=== PATIENT | female | born 1990 | race Hispanic/Latino ===

== ENCOUNTER 2017-03-25 13:15 | Emergency (ER) | payer MEDICAID ==
[2017-03-25 14:03] LABS: Bilirubin,Urine NEG (Negative); Blood,Urine NEG (Negative); Ketones,Urine NEG (Negative); Leukocyte Esterase,Urine NEG (Negative); Nitrite,Urine NEG (Negative); Protein,Urine <15 mg/dL mg/dL (Negative); RBC,Urine < 1.0 /HPF (0.0-6.0); Urobilinogen,Urine < 2.0 mg/dL (<2.0); WBC,Urine < 1.0 /HPF (0.0-6.0)
[2017-03-25 14:09] LABS: Basophils % (Auto) 0.9 % (0.0-1.8); Hematocrit 44.6 % (30.3-42.9); Hemoglobin 15.3 gm/dl (10.1-14.3); Mean Corpuscular HGB Conc 34 % (30-34); Mean Corpuscular Hemoglobin 32 pg (28-32); Mean Corpuscular Volume 93 fl (79-97); Platelet Count 214 K/mm3 (140-440); Red Blood Count 4.78 M/mm3 (3.65-5.03); Red Cell Distribution Width 13.4 % (13.2-15.2); White Blood Count 10.4 K/mm3 (4.5-11.0)
[2017-03-25 15:50] LABS: Alanine Aminotransferase 20 units/L (7-56); Albumin 4.4 g/dL (3.9-5); Albumin/Globulin Ratio 1.6 %; Alkaline Phosphatase 72 units/L (35-129); Anion Gap 19 mmol/L; BUN/Creatinine Ratio 11.25; Blood Urea Nitrogen 9 mg/dL (7-17); Calcium 9.5 mg/dL (8.4-10.2); Carbon Dioxide 22 mmol/L (22-30); Chloride 101.2 mmol/L (98-107); Glucose 80 mg/dL (65-100); Lipase 50 units/L (13-60); Potassium 4.3 mmol/L (3.6-5.0); Sodium 138 mmol/L (137-145); Total Protein 7.2 g/dL (6.3-8.2)
[2017-03-25] MEDS ORDERED: TORADOL IM ONE (16:37)
[2017-03-25] MEDS ORDERED: FLEXERIL PO ONE (16:37)
--- NOTE | 2017-03-25 16:44 | Emergency Department Report ---
ED Back Pain/Injury HPI - General Chief Complaint: Abdominal Pain Stated Complaint: LEFT SIDE PAIN Time Seen by Provider: 03/25/17 16:18 Source: patient Limitations: No Limitations - History of Present Illness Initial Comments: 27-year-old female with a past medical history presents to the hospital complaining of sudden onset left flank pain after walking this morning. Patient complained of a twisting pulling sensation with 7/10 in intensity. Pain was worse with movement and palpation. Patient also lifting a 20 pound child on a regular basis. Patient has been having an intermittent and more mild pain for the last 2 weeks but acutely worsened today while ambulating. One episode of vomiting yesterday. Patient denies any nausea or vomiting today with severe pain episodes. She denies dysuria, hematuria, fever or continued intermittent nausea or vomiting, leg weakness or numbness. - Related Data Previous Rx's Medication Instructions Recorded Last Taken Type Ibuprofen [Motrin] 800 mg PO Q8HR PRN #30 tablet 03/25/17 Unknown Rx Metaxalone [Skelaxin] 800 mg PO TID PRN #30 tablet 03/25/17 Unknown Rx traMADol [Ultram 50 MG tab] 50 mg PO Q6HR PRN #20 tablet 03/25/17 Unknown Rx Allergies Allergy/AdvReac Type Severity Reaction Status Date / Time No Known Allergies Allergy Unverified 03/25/17 13:25 ED Review of Systems ROS: Stated complaint: LEFT SIDE PAIN Other details as noted in HPI Comment: All other systems reviewed and negative Other: Constitutional: No fevers chills Eyes: No eye pain visual changes ENT: No ear pain or throat pain Neck: Denies pain Respiratory: Denies cough wheezing shortness of breath Cardiovascular: Denies chest pain, palpitations, syncope GI: Mild left lower quadrant pain. : Denies dysuriacy Musculoskeletal: As per HPI Skin: Denies rash, lesions, erythema Neurologic: Denies headache, numbness, weakness Psychiatric: Denies suicidal ideation, hallucinations ED Past Medical Hx - Past Medical History Previous Medical History?: No - Surgical History Hx Cholecystectomy: Yes - Social History Smoking Status: Current Every Day Smoker Substance Use Type: None - Medications Home Medications: Home Medications Medication Instructions Recorded Confirmed Last Taken Type Ibuprofen [Motrin] 800 mg PO Q8HR PRN #30 tablet 03/25/17 Unknown Rx Metaxalone [Skelaxin] 800 mg PO TID PRN #30 tablet 03/25/17 Unknown Rx traMADol [Ultram 50 MG tab] 50 mg PO Q6HR PRN #20 tablet 03/25/17 Unknown Rx ED Physical Exam - General Limitations: No Limitations - Other Other exam information: General: No limitations, patient is alert in no acute distress Head exam: Atraumatic, normocephalic Eyes exam: Normal appearance, pupils equal reactive to light, extraocular movements intact ENT: Moist mucous membrane, normal oropharynx Neck exam: Normal inspection, full range of motion, no meningismus nontender Respiratory exam: Clear to auscultation bilateral, no wheezes, rales, crackles Cardiovascular: Normal rate and rhythm, normal heart sounds Abdomen: Soft, nondistended, and nontender, with normal bowel sounds, no rebound, or guarding Extremity: Full range of motion normal inspection no deformity Back: Normal Inspection, full range of motion, reproducible tenderness to left lower back muscles and flank. No midline tenderness Neurologic: Alert, oriented x3, cranial nerves intact, no motor or sensory deficit Psychiatric: normal affect, normal mood Skin: Warm, dry, intact ED Course Vital Signs 03/25/17 03/25/17 13:25 13:47 Temperature 98.7 F 98.4 F Pulse Rate 64 63 Respiratory 16 16 Rate Blood Pressure 125/76 Blood Pressure 100/63 [Left] O2 Sat by Pulse 98 98 Oximetry - Reevaluation(s) Reevaluation #1: 03/25/17 16:50 Toradol and Flexeril ordered ED Medical Decision Making - Lab Data Result diagrams: 03/25/17 13:54 03/25/17 13:54 Lab Results 03/25/17 03/25/17 03/25/17 Range/Units 13:37 13:54 13:54 WBC 10.4 (4.5-11.0) K/mm3 RBC 4.78 (3.65-5.03) M/mm3 Hgb 15.3 H (10.1-14.3) gm/dl Hct 44.6 H (30.3-42.9) % MCV 93 (79-97) fl MCH 32 (28-32) pg MCHC 34 (30-34) % RDW 13.4 (13.2-15.2) % Plt Count 214 (140-440) K/mm3 Lymph % (Auto) 27.6 (13.4-35.0) % [place] % (Auto) 8.2 H (0.0-7.3) % Eos % (Auto) 0.0 (0.0-4.3) % Baso % (Auto) 0.9 (0.0-1.8) % Lymph # 2.9 (1.2-5.4) K/mm3 [place] # 0.9 H (0.0-0.8) K/mm3 Eos # 0.0 (0.0-0.4) K/mm3 Baso # 0.1 (0.0-0.1) K/mm3 Seg Neutrophils % 63.3 (40.0-70.0) % Seg Neutrophils # 6.5 (1.8-7.7) K/mm3 Sodium 138 (137-145) mmol/L Potassium 4.3 (3.6-5.0) mmol/L Chloride 101.2 (98-107) mmol/L Carbon Dioxide 22 (22-30) mmol/L Anion Gap 19 mmol/L BUN 9 (7-17) mg/dL Creatinine 0.8 (0.7-1.2) mg/dL Estimated GFR > 60 ml/min BUN/Creatinine Ratio 11.25 % Glucose 80 (65-100) mg/dL Calcium 9.5 (8.4-10.2) mg/dL Total Bilirubin 0.60 (0.1-1.2) mg/dL AST 17 (5-40) units/L ALT 20 (7-56) units/L Alkaline Phosphatase 72 (35-129) units/L Total Protein 7.2 (6.3-8.2) g/dL Albumin 4.4 (3.9-5) g/dL Albumin/Globulin Ratio 1.6 % Lipase 50 (13-60) units/L Urine Color Straw (Yellow) Urine Turbidity Clear (Clear) Urine pH 6.0 (5.0-7.0) Ur Specific [place] 1.005 (1.003-1.030) Urine Protein <15 mg/dl (Negative) mg/dL Urine Glucose (UA) Neg (Negative) mg/dL Urine Ketones Neg (Negative) mg/dL Urine Blood Neg (Negative) Urine Nitrite Neg (Negative) Ur Reducing Substances Not Reportable Urine Bilirubin Neg (Negative) Urine Ictotest Not Reportable Urine Urobilinogen < 2.0 (<2.0) mg/dL Ur Leukocyte Esterase Neg (Negative) Urine WBC (Auto) < 1.0 (0.0-6.0) /HPF Urine RBC (Auto) < 1.0 (0.0-6.0) /HPF U Epithel Cells (Auto) 1.0 (0-13.0) /HPF Urine HCG, Qual Negative (Negative) - Medical Decision Making She will be discharged home on medication for pain and muscle spasm. I have a low suspicion for kidney stone at this time given the lack of associated nausea vomiting with spasm episodes and lack of blood in urine. His symptoms worsen patient encouraged to return for further evaluation. Advised to decrease heavy lifting. - Differential Diagnosis renal colic, muscle spasm, ectopic , ovarian cyst Critical Care Time: No Critical care attestation.: If time is entered above; I have spent that time in minutes in the direct care of this critically ill patient, excluding procedure time. ED Disposition Clinical Impression: Back muscle spasm Disposition: TO HOME OR SELFCARE Is pt being admited?: No Does the pt Need Aspirin: No Condition: Stable Instructions: Muscle Spasm (ED) Additional Instructions: Take the medication as needed for pain and muscle spasm. Follow-up with your primary care doctor or one of the clinics/docs provided. Return if symptoms worsen. Prescriptions: Ibuprofen [Motrin] 800 mg PO Q8HR PRN #30 tablet PRN Reason: Pain Metaxalone [Skelaxin] 800 mg PO TID PRN #30 tablet PRN Reason: Muscle Spasm traMADol [Ultram 50 MG tab] 50 mg PO Q6HR PRN #20 tablet PRN Reason: Pain Referrals: LUIS ANTONIO LOCO MD [Primary Care Provider] - 3-5 Days QUINTIN FINLEY JR, MD [Staff Physician] - 3-5 Days [facility] [Provider Group] - 3-5 Days Time of Disposition: 16:54
[2017-03-25 17:24] VITALS: BP 96/46
== END 2017-03-25 17:23 | disposition home or self-care (01) ==
LOC: ED 13:15
DX: M62.830 Muscle spasm of back (principal); F17.200 Nicotine dependence, unspecified, uncomplicated
CPT/HCPCS: 36415; 80053; 81001; 81025; 83690; 85025; 96372; 99283; J1885

== ENCOUNTER 2018-02-10 18:59 | Outpatient (CLI) | payer MEDICAID ==
[2018-02-10 19:17] VITALS: BP 114/72
[2018-02-10] MEDS ORDERED: LACTATED RINGERS 1,000 ML IV ONE (20:09)
== END 2018-02-10 19:55 | disposition home or self-care (01) ==
LOC: TRG 18:59
PROVIDERS: ATTEND Obstetrics & Gynecology
DX: O47.03 False labor before 37 completed weeks of gestation, third trimester (principal); O99.333 Smoking (tobacco) complicating pregnancy, third trimester; Z3A.36 36 weeks gestation of pregnancy
CPT/HCPCS: 59025

== ENCOUNTER 2018-02-17 12:18 | Outpatient (CLI) | payer MEDICAID ==
[2018-02-17 11:32] VITALS: BP 105/59
[~2018-02-17 12:18] MED LIST: VISTARIL PO ONE
[2018-02-17 12:57] LABS: Bacteria,Urine 1+ /HPF (Negative); Bilirubin,Urine NEG (Negative); Blood,Urine NEG (Negative); Color,Urine Amber (Yellow); Mucus,Urine 2+ /HPF
== END 2018-02-17 13:05 | disposition home or self-care (01) ==
LOC: TRG 12:18
PROVIDERS: ATTEND Obstetrics & Gynecology
DX: O47.03 False labor before 37 completed weeks of gestation, third trimester (principal); O99.333 Smoking (tobacco) complicating pregnancy, third trimester; Z3A.37 37 weeks gestation of pregnancy
CPT/HCPCS: 59025; 81001; Q0177

== ENCOUNTER 2018-03-05 15:02 | Inpatient (IN) | payer MEDICAID ==
[2018-03-05] MEDS ORDERED: LACTATED RINGERS 1,000 ML IV ONE (16:36)
[2018-03-05] MEDS ORDERED: STADOL IV PRN (16:39)
[2018-03-05] MEDS: LACTATED RINGERS 1,000 ML IV SCH ×2 (16:55→21:33)
[2018-03-05] MEDS: PITOCin/NS 30 UNIT/500ML 30 UNITS/500 ML BAG IV SCH ×3 (16:56→21:05)
[2018-03-05 17:00] LABS: Basophils % (Auto) 0.4 % (0.0-1.8); Hematocrit 33.5 % (30.3-42.9); Lymphocytes # (Auto) 3.2 K/mm3 (1.2-5.4); Mean Corpuscular HGB Conc 36 % (30-34); Mean Corpuscular Hemoglobin 34 pg (28-32); Mean Corpuscular Volume 94 fl (79-97); Monocytes # (Auto) 1.1 K/mm3 (0.0-0.8); Monocytes % (Auto) 8.7 % (0.0-7.3); Platelet Count 251 K/mm3 (140-440); Red Blood Count 3.58 M/mm3 (3.65-5.03); Red Cell Distribution Width 12.8 % (13.2-15.2)
[2018-03-05 17:05] LABS: Bacteria,Urine 1+ /HPF (Negative); Bilirubin,Urine NEG (Negative); Blood,Urine NEG (Negative); Color,Urine Amber (Yellow); Mucus,Urine 1+ /HPF; Protein,Urine <15 mg/dL mg/dL (Negative)
[2018-03-05] MEDS ORDERED: BRETHINE SUB-Q PRN (19:01)
[2018-03-05] MEDS ORDERED: XYLOCAINE 2% INFILTRATI ONE (19:01)
[2018-03-05] MEDS ORDERED: NARCAN 0.4 MG/1 ML IV PRN (19:01)
[2018-03-05] MEDS ORDERED: ePHEDrine SULFATE IV PRN (19:01)
[2018-03-05] MEDS ORDERED: ZOFRAN IV PRN (19:01)
[2018-03-05] MEDS ORDERED: BRETHINE IVP PRN (19:01)
[2018-03-05] MEDS ORDERED: MINERAL OIL PO PRN (19:01)
[2018-03-05] MEDS ORDERED: PHENERGAN PR PRN (19:01)
[2018-03-05] MEDS ORDERED: SUBLIMAZE IV PRN (19:01)
[2018-03-05] MEDS ORDERED: LACTATED RINGERS 1,000 ML IV SCH (20:00)
[2018-03-05] MEDS ORDERED: PITOCin/NS 30 UNIT/500ML 30 UNITS/500 ML BAG IV SCH ×2 (20:00)
[2018-03-05] MEDS ORDERED: PITOCin/NS 20 UNIT/1000ML DRIP 20 UNITS/1,000 ML BAG IV SCH (20:00)
--- NOTE | 2018-03-05 22:20 | History and Physical Report ---
History of Present Illness Date of examination: 03/05/18 Date of admission: 03/05/18 15:02 Chief complaint: arrythmia on NST History of present illness: This is a 27 yo at 40 weeks admitted to labor for arrythmia detected on nst. Patient is Premier since 10 weeks with a close proximity .. She had renal pyelectasisi followed by MFM. Patient is smoker and GBS neg Past History Past Medical History: no pertinent history Past Surgical History: no surgical history Family/Genetic History: diabetes, hypertension, other (seizure and hypercholesterlemia, athritis ) Social history: , smoking. denies: alcohol abuse, prescription drug abuse - Obstetrical History Expected Date of Delivery: 03/05/18 Actual Gestation: 40 Week(s) 0 Day(s) : 2 Para: 1 Hx # Term Pregnancies: 1 Number of Pregnancies: 0 Spontaneous Abortions: 0 Induced : 0 Number of Living Children: 1 Medications and Allergies Allergies Allergy/AdvReac Type Severity Reaction Status Date / Time No Known Allergies Allergy Unverified 03/25/17 13:25 Home Medications Medication Instructions Recorded Confirmed Last Taken Type Pnv No.95/Ferrous Fum/Folic AC 1 tab PO QDAY 02/10/18 02/17/18 Unknown History [ Vitamins Tablet] Acetaminophen [Tylenol Extra 1,000 mg PO Q8HR PRN 02/17/18 02/17/18 02/09/18 15: 00 History Strength] 1 Active Meds: Active Medications Butorphanol Tartrate (Stadol) 2 mg IV Q2H PRN PRN Reason: Labor Pain Ephedrine Sulfate (Ephedrine Sulfate) 10 mg IV Q2M PRN PRN Reason: Hypotension Fentanyl (Sublimaze) 100 mcg IV Q2H PRN PRN Reason: Labor Pain Lactated Ringer's (Lactated Ringers) 1,000 mls @ 125 mls/hr IV DIRECT MICHELLE Last Admin: 03/05/18 21:33 Dose: 125 mls/hr Oxytocin/Sodium Chloride (Pitocin/Ns 30 Unit/500ml) 30 units in 500 mls @ 2 mls /hr IV TITR MICHELLE; Protocol Last Titration: 03/05/18 21:33 Dose: 12 milliunits/min, 12 mls/hr Lactated Ringer's (Lactated Ringers) 1,000 mls @ 125 mls/hr IV DIRECT MICHELLE Oxytocin/Sodium Chloride (Pitocin/Ns 20 Unit/1000ml Drip) 20 units in 1,000 mls @ 125 mls/hr IV DIRECT MICHELLE Oxytocin/Sodium Chloride (Pitocin/Ns 30 Unit/500ml) 30 units in 500 mls @ 1 mls /hr IV TITR MICHELLE; Protocol Oxytocin/Sodium Chloride (Pitocin/Ns 30 Unit/500ml) 30 units in 500 mls @ 0 mls /hr IV TITR MICHELLE; Protocol Mineral Oil (Mineral Oil) 30 ml PO QHS PRN PRN Reason: Constipation Naloxone HCl (Narcan 0.4 Mg/1 Ml) 0.1 mg IV Q2MIN PRN PRN Reason: Res Rate </= 8 or 02 SAT < 92% Ondansetron HCl (Zofran) 4 mg IV Q8H PRN PRN Reason: Nausea And Vomiting Promethazine HCl (Phenergan) 25 mg TN Q6H PRN PRN Reason: N/V if unable to take po Terbutaline Sulfate (Brethine) 0.25 mg SUB-Q ONCE PRN PRN Reason: Hyperstimulation/Hypertonicity Terbutaline Sulfate (Brethine) 0.25 mg IVP ONCE PRN PRN Reason: Hyperstimulation/Hypertonicity Review of Systems All systems: negative - Vital Signs Vital signs: Vital Signs Pulse BP 95 H 108/67 03/05/18 15:38 03/05/18 15:38 Temp Pulse Resp BP Pulse Ox 98.1 F 69 16 111/71 98 03/05/18 19:18 03/05/18 22:19 03/05/18 19:18 03/05/18 22:00 03/05/18 22:19 - Physical Exam Breasts: Positive: normal Cardiovascular: Regular rate, Normal S1 Lungs: Positive: Clear to auscultation, Normal air movement Abdomen: Positive: normal appearance, soft, normal bowel sounds. Negative: distention, tenderness, guarding Genitourinary (Female): Positive: normal external genitalia, normal perenium Vagina: Positive: normal moisture Uterus: Positive: normal size Anus/Rectum: Positive: normal perianal skin Extremities: Positive: normal Deep Tendon Reflex Grade: Normal +2 - Obstetrical FHR: category 1 Cervical Dilatation: 4 Cervical Effacement Percentage: 80 station: -2 Uterine Contraction Pattern: Irregular Uterine Tone Measurement Phase: Resting Uterine Contraction Intensity: Mild Results Result Diagrams: 03/05/18 15:40 Abnormal lab results 03/05/18 03/05/18 Range/Units 15:40 16:40 WBC 12.7 H (4.5-11.0) K/mm3 RBC 3.58 L (3.65-5.03) M/mm3 MCH 34 H (28-32) pg MCHC 36 H (30-34) % RDW 12.8 L (13.2-15.2) % [place] % (Auto) 8.7 H (0.0-7.3) % [place] # 1.1 H (0.0-0.8) K/mm3 Seg Neutrophils # 8.4 H (1.8-7.7) K/mm3 Urine WBC (Auto) 7.0 H (0.0-6.0) /HPF All other labs normal. Assessment and Plan A/P IUP 40 weeks, term arrythmia obesity smoker IOL with pitocin close and maternal surveillance offer epidural expect vaginal delivery peds to be contacted to be in attendance to delivery
--- NOTE | 2018-03-06 07:44 | Progress Note ---
Assessment and Plan A: IUP at term Active Labor P; AROM-clear fluid Active mangt Pitocin Subjective - Subjective Date of service: 03/06/18 Patient reports: new complaints, movement normal, contractions (Denies pain with ctx), no loss of fluid, no vaginal bleeding Objective - Vital Signs Vital Signs: Vital Signs - 12hr 03/05/18 03/05/18 03/05/18 19:39 19:44 19:49 Pulse Rate 53 L 56 L 56 L Blood Pressure O2 Sat by Pulse 99 98 99 Oximetry 03/05/18 03/05/18 03/05/18 19:54 19:59 20:01 Pulse Rate 52 L 62 Blood Pressure O2 Sat by Pulse 99 99 85 Oximetry 03/05/18 03/05/18 03/05/18 20:04 20:09 20:14 Pulse Rate 55 L 53 L 57 L Blood Pressure O2 Sat by Pulse 98 99 99 Oximetry 03/05/18 03/05/18 03/05/18 20:19 20:24 20:28 Pulse Rate 53 L 55 L 64 Blood Pressure O2 Sat by Pulse 99 98 87 Oximetry 03/05/18 03/05/18 03/05/18 20:29 20:34 20:39 Pulse Rate 79 57 L 58 L Blood Pressure O2 Sat by Pulse 85 99 98 Oximetry 03/05/18 03/05/18 03/05/18 20:44 20:49 20:54 Pulse Rate 50 L 55 L 51 L Blood Pressure O2 Sat by Pulse 96 99 98 Oximetry 03/05/18 03/05/18 03/05/18 20:59 21:04 21:09 Pulse Rate 68 56 L 56 L Blood Pressure O2 Sat by Pulse 99 98 98 Oximetry 03/05/18 03/05/18 03/05/18 21:14 21:19 21:24 Pulse Rate 54 L 56 L 54 L Blood Pressure O2 Sat by Pulse 98 96 98 Oximetry 03/05/18 03/05/18 03/05/18 21:29 21:34 21:39 Pulse Rate 55 L 53 L 55 L Blood Pressure 119/68 O2 Sat by Pulse 96 97 97 Oximetry 03/05/18 03/05/18 03/05/18 21:44 21:49 21:54 Pulse Rate 52 L 71 51 L Blood Pressure O2 Sat by Pulse 98 97 97 Oximetry 0703/05/18 03/05/18 21:59 22:00 22:04 Pulse Rate 58 L 53 L 58 L Blood Pressure 111/71 O2 Sat by Pulse 97 99 Oximetry 03/05/18 03/05/18 03/05/18 22:09 22:14 22:19 Pulse Rate 54 L 50 L 69 Blood Pressure O2 Sat by Pulse 98 99 98 Oximetry 03/05/18 03/05/18 03/05/18 22:24 22:29 22:30 Pulse Rate 51 L 51 L 50 L Blood Pressure 123/69 O2 Sat by Pulse 98 97 Oximetry 03/05/18 03/05/18 03/05/18 22:34 22:39 22:44 Pulse Rate 56 L 62 59 L Blood Pressure O2 Sat by Pulse 94 98 90 Oximetry 03/05/18 03/05/18 03/05/18 22:49 22:54 22:59 Pulse Rate 57 L 56 L 55 L Blood Pressure O2 Sat by Pulse 100 99 99 Oximetry 03/05/18 03/05/18 03/05/18 23:04 23:09 23:14 Pulse Rate 51 L 51 L 50 L Blood Pressure O2 Sat by Pulse 98 98 99 Oximetry 03/05/18 03/05/18 03/05/18 23:19 23:24 23:29 Pulse Rate 53 L 53 L 69 Blood Pressure O2 Sat by Pulse 98 98 98 Oximetry 03/05/18 03/05/18 03/05/18 23:30 23:34 23:39 Pulse Rate 57 L 57 L 67 Blood Pressure 119/71 O2 Sat by Pulse 98 98 Oximetry 03/05/18 03/05/18 03/05/18 23:44 23:49 23:54 Pulse Rate 54 L 55 L 67 Blood Pressure O2 Sat by Pulse 98 98 96 Oximetry 03/05/18 03/05/18 03/06/18 23:56 23:59 00:02 Pulse Rate 72 57 L 53 L Blood Pressure 137/84 O2 Sat by Pulse 93 99 Oximetry 03/06/18 03/06/18 03/06/18 00:04 00:09 00:14 Pulse Rate 66 52 L 58 L Blood Pressure O2 Sat by Pulse 99 99 99 Oximetry 03/06/18 03/06/18 03/06/18 00:19 00:24 00:29 Pulse Rate 55 L 50 L 55 L Blood Pressure O2 Sat by Pulse 98 98 96 Oximetry 03/06/18 03/06/18 03/06/18 00:30 00:34 00:39 Pulse Rate 58 L 50 L 58 L Blood Pressure 111/70 O2 Sat by Pulse 98 98 Oximetry 03/06/18 03/06/18 03/06/18 00:45 00:50 00:55 Pulse Rate 78 71 54 L Blood Pressure O2 Sat by Pulse 99 96 98 Oximetry 03/06/18 03/06/18 03/06/18 01:00 01:05 01:06 Pulse Rate 55 L 56 L 51 L Blood Pressure 114/66 119/58 O2 Sat by Pulse 99 99 Oximetry 03/06/18 03/06/18 03/06/18 01:10 01:15 01:20 Pulse Rate 52 L 62 55 L Blood Pressure O2 Sat by Pulse 98 98 97 Oximetry 03/06/18 03/06/18 03/06/18 01:25 01:29 01:30 Pulse Rate 50 L 54 L 51 L Blood Pressure 104/68 O2 Sat by Pulse 98 98 Oximetry 03/06/18 03/06/18 03/06/18 01:35 01:40 01:45 Pulse Rate 57 L 54 L 56 L Blood Pressure O2 Sat by Pulse 97 96 96 Oximetry 03/06/18 03/06/18 03/06/18 01:50 01:55 01:56 Pulse Rate 52 L 54 L 55 L Blood Pressure O2 Sat by Pulse 94 95 94 Oximetry 03/06/18 03/06/18 03/06/18 01:59 02:00 02:01 Pulse Rate 54 L 54 L 54 L Blood Pressure 110/67 O2 Sat by Pulse 95 94 Oximetry 03/06/18 03/06/18 03/06/18 02:05 02:06 02:10 Pulse Rate 54 L 51 L 49 L Blood Pressure O2 Sat by Pulse 94 94 94 Oximetry 03/06/18 03/06/18 03/06/18 02:15 02:17 02:20 Pulse Rate 49 L 53 L 51 L Blood Pressure O2 Sat by Pulse 94 94 95 Oximetry 03/06/18 03/06/18 03/06/18 02:25 02:30 02:35 Pulse Rate 47 L 50 L 47 L Blood Pressure 114/69 O2 Sat by Pulse 100 100 100 Oximetry 03/06/18 03/06/18 03/06/18 02:40 02:45 02:50 Pulse Rate 52 L 48 L 50 L Blood Pressure O2 Sat by Pulse 100 100 100 Oximetry 03/06/18 03/06/18 03/06/18 02:55 02:59 03:00 Pulse Rate 47 L 48 L 52 L Blood Pressure 114/68 O2 Sat by Pulse 100 100 Oximetry 03/06/18 03/06/18 03/06/18 03:05 03:10 03:15 Pulse Rate 64 63 61 Blood Pressure O2 Sat by Pulse 99 100 100 Oximetry 03/06/18 03/06/18 03/06/18 03:16 03:20 03:25 Pulse Rate 58 L 49 L 50 L Blood Pressure O2 Sat by Pulse 89 100 100 Oximetry 03/06/18 03/06/18 03/06/18 03:30 03:35 03:40 Pulse Rate 47 L 54 L 62 Blood Pressure 106/66 O2 Sat by Pulse 100 99 99 Oximetry 03/06/18 03/06/18 03/06/18 03:45 03:50 03:55 Pulse Rate 51 L 50 L 53 L Blood Pressure O2 Sat by Pulse 99 99 99 Oximetry 03/06/18 03/06/18 03/06/18 04:00 04:05 04:10 Pulse Rate 50 L 49 L 49 L Blood Pressure 118/56 O2 Sat by Pulse 98 98 98 Oximetry 03/06/18 03/06/18 03/06/18 04:15 04:20 04:25 Pulse Rate 49 L 45 L 48 L Blood Pressure O2 Sat by Pulse 98 98 98 Oximetry 03/06/18 03/06/18 03/06/18 04:29 04:30 04:35 Pulse Rate 44 L 61 49 L Blood Pressure 106/55 O2 Sat by Pulse 98 98 Oximetry 03/06/18 03/06/18 03/06/18 04:40 04:45 04:50 Pulse Rate 47 L 50 L 48 L Blood Pressure O2 Sat by Pulse 98 98 98 Oximetry 03/06/18 03/06/18 03/06/18 04:56 05:01 05:06 Pulse Rate 51 L 47 L 50 L Blood Pressure 122/67 O2 Sat by Pulse 97 96 95 Oximetry 03/06/18 03/06/18 03/06/18 05:11 05:16 05:21 Pulse Rate 46 L 47 L 49 L Blood Pressure O2 Sat by Pulse 93 94 92 Oximetry 03/06/18 03/06/18 03/06/18 05:26 05:30 05:31 Pulse Rate 49 L 54 L 47 L Blood Pressure 90/51 O2 Sat by Pulse 92 92 Oximetry 03/06/18 03/06/18 03/06/18 05:36 05:41 05:46 Pulse Rate 47 L 48 L 45 L Blood Pressure O2 Sat by Pulse 92 93 92 Oximetry 03/06/18 03/06/18 03/06/18 05:51 05:56 06:00 Pulse Rate 48 L 47 L 50 L Blood Pressure 122/69 O2 Sat by Pulse 92 92 Oximetry 03/06/18 03/06/18 03/06/18 06:01 06:06 06:11 Pulse Rate 50 L 49 L 47 L Blood Pressure O2 Sat by Pulse 92 93 96 Oximetry 03/06/18 03/06/18 03/06/18 06:16 06:21 06:26 Pulse Rate 51 L 59 L 50 L Blood Pressure O2 Sat by Pulse 95 96 97 Oximetry 03/06/18 03/06/18 03/06/18 06:29 06:31 06:36 Pulse Rate 68 43 L 49 L Blood Pressure O2 Sat by Pulse 92 97 96 Oximetry 03/06/18 03/06/18 03/06/18 06:41 06:46 06:51 Pulse Rate 47 L 50 L 47 L Blood Pressure O2 Sat by Pulse 96 95 97 Oximetry 03/06/18 03/06/18 03/06/18 06:56 07:01 07:06 Pulse Rate 49 L 44 L 47 L Blood Pressure O2 Sat by Pulse 98 99 98 Oximetry 03/06/18 03/06/18 03/06/18 07:11 07:16 07:21 Pulse Rate 48 L 45 L 53 L Blood Pressure O2 Sat by Pulse 98 97 98 Oximetry 03/06/18 03/06/18 03/06/18 07:31 07:35 07:36 Pulse Rate 59 L 51 L 48 L Blood Pressure 145/65 O2 Sat by Pulse 99 99 Oximetry - Exam Breasts: deferred Abdomen: Present: normal appearance FHR: category 1 Uterine Contraction Monitor Mode: External Cervical Dilatation: 5 Cervical Effacement Percentage: 80 station: -2 Uterine Contraction Frequency (min): 2 Uterine Contraction Duration: 60-80 Uterine Contraction Pattern: Regular Uterine Tone Measurement Phase: Resting Uterine Contraction Intensity: Moderate - Labs Labs: Abnormal Labs 03/05/18 03/05/18 15:40 16:40 WBC 12.7 H RBC 3.58 L MCH 34 H MCHC 36 H RDW 12.8 L [place] % (Auto) 8.7 H [place] # 1.1 H Seg Neutrophils # 8.4 H Urine WBC (Auto) 7.0 H Laboratory Results - last 24 hr 03/05/18 03/05/18 03/05/18 15:40 15:40 16:40 WBC 12.7 H RBC 3.58 L Hgb 12.0 Hct 33.5 MCV 94 MCH 34 H MCHC 36 H RDW 12.8 L Plt Count 251 Lymph % (Auto) 25.0 [place] % (Auto) 8.7 H Eos % (Auto) 0.0 Baso % (Auto) 0.4 Lymph # 3.2 [place] # 1.1 H Eos # 0.0 Baso # 0.0 Seg Neutrophils % 65.9 Seg Neutrophils # 8.4 H Urine Color Rachelle Urine Turbidity Cloudy Urine pH 6.0 Ur Specific [place] 1.017 Urine Protein <15 mg/dl Urine Glucose (UA) Neg Urine Ketones Neg Urine Blood Neg Urine Nitrite Neg Urine Bilirubin Neg Urine Urobilinogen 4.0 Ur Leukocyte Esterase Neg Urine WBC (Auto) 7.0 H Urine RBC (Auto) 4.0 U Epithel Cells (Auto) 2.0 Urine Bacteria (Auto) 1+ Urine Mucus 1+ Urine Yeast (Budding) 2+ Blood Type A POSITIVE Antibody Screen Negative
--- NOTE | 2018-03-06 08:51 | Event Note ---
Date: 03/06/18 Called by RN secondary to inability to monitor contractions. FHTs Cat II. SVE: /-2. IUPC placed. Decrease pitocin by half, then increase per protocol. Routine intrapartum care.
[2018-03-06] MEDS ORDERED: NARCAN 2 MG/2 ML IV PRN (09:25)
[2018-03-06] MEDS ORDERED: ePHEDrine SULFATE IV PRN (09:25)
--- NOTE | 2018-03-06 09:25 | Anesthesia Consultation ---
Anesthesia Consult and Med Hx Date of service: 03/06/18 - Airway Anesthetic Teeth Evaluation: Good ROM Head & Neck: Adequate Mental/Hyoid Distance: Adequate Mallampati Class: Class II Intubation Access Assessment: Probably Good - Pre-Operative Health Status ASA Pre-Surgery Classification: ASA2 Proposed Anesthetic Plan: Epidural, Spinal - Pulmonary Hx Smoking: Yes (current smoker) Hx Asthma: Yes COPD: No Hx Pneumonia: Yes (hx) - Cardiovascular System Hx Hypertension: No - Central Nervous System Hx Seizures: No Hx Psychiatric Problems: No - Endocrine Hx Renal Disease: No Hx End Stage Renal Disease: No Hx Hypothyroidism: No Hx Hyperthyroidism: No - Hematic Hx Anemia: No Hx Sickle Cell Disease: No - Other Systems Hx Alcohol Use: No
[2018-03-06] MEDS ORDERED: fentaNYL-BUPIV 2 MCG/ML-0.125% 200 MCG/100 ML BAG EPIDURAL SCH (10:00)
--- NOTE | 2018-03-06 11:31 | Procedure Note ---
OB Delivery Note - Delivery Date of Delivery: 03/06/18 (8-0lb male @ 1058) Surgeon: NOEMY DANG Estimated blood loss: 100cc - Vaginal Delivery presentation: vertex Delivery position: OA Intrapartum events: mult.variable deceleratio Delivery induction: oxytocin Delivery augmentation: rupture of membranes, pitocin Delivery monitor: external FHT, external uterine, internal uterine Route of delivery: Delivery placenta: spontaneous Delivery cord: nuchal cord (Tight x 1, reduced), 3 umbilical vessels Episiotomy: none Delivery laceration: none Anesthesia: epidural - Infant A at 1 minute: 7 at 5 minutes: 9 Infant Gender: Male (Pushed to viable male over intact, tight NC reduced. NICU at BS. Spont. placenta, cord blood collected. to warmer, suctioned. No lacerations. FF 3 below, U, ML.)
[2018-03-06] MEDS ORDERED: NORCO 5/325 PO PRN (11:36)
[2018-03-06] MEDS ORDERED: MILK OF MAGNESIA PO PRN (11:36)
[2018-03-06] MEDS ORDERED: PHENERGAN PR PRN (11:36)
[2018-03-06] MEDS ORDERED: PHENERGAN PO PRN (11:36)
[2018-03-06] MEDS ORDERED: ZOFRAN IV PRN (11:36)
[2018-03-06] MEDS ORDERED: LANSINOH TP PRN (11:36)
[2018-03-06] MEDS ORDERED: BENADRYL PO PRN (11:36)
[2018-03-06] MEDS ORDERED: TUCKS PAD TP PRN (11:36)
[2018-03-06] MEDS ORDERED: TYLENOL PO PRN (11:36)
[2018-03-06] MEDS ORDERED: DULCOLAX PR PRN (11:36)
[2018-03-06] MEDS ORDERED: SODIUM CHLORIDE FLUSH SYRINGE 10 ML IV NR (12:00)
[2018-03-06] MEDS: MOTRIN PO SCH (17:46)
[2018-03-06 23:57] LABS: Hematocrit 29.2 % (30.3-42.9); Hemoglobin 10.3 gm/dl (10.1-14.3)
[2018-03-07] MEDS: MOTRIN PO SCH ×4 (00:15→12:18)
--- NOTE | 2018-03-07 08:53 | Progress Note ---
Assessment and Plan O: VSS AF PP H/H: 10.3/29.2 A: Stable PP Day 1 P: D/c home Subjective - Subjective Date of service: 03/07/18 Patient reports: appetite normal, voiding normally, pain well controlled, flatus , ambulating normally : doing well, bottle feeding Objective - Vital Signs Latest vital signs: Vital Signs Temp Pulse Resp BP BP Pulse Ox 03/07/18 07:40 97.5 F L 47 L 18 112/63 94 03/07/18 00:16 98.3 F 64 18 104/58 109/62 98 03/06/18 20:40 98.2 F 62 18 110/67 97 03/06/18 16:30 98.2 F 58 L 18 108/58 03/06/18 13:00 98.2 F 51 L 18 111/59 03/06/18 12:16 59 L 105/55 03/06/18 12:01 48 L 113/60 03/06/18 11:46 55 L 118/59 03/06/18 11:31 57 L 119/58 03/06/18 11:16 48 L 113/56 03/06/18 11:07 54 L 120/55 03/06/18 10:47 50 L 133/65 03/06/18 10:31 56 L 127/58 03/06/18 09:59 55 L 115/54 03/06/18 09:49 57 L 130/58 03/06/18 09:48 53 L 142/65 03/06/18 09:44 60 94 03/06/18 09:43 56 L 99 03/06/18 09:39 58 L 173/79 03/06/18 09:38 59 L 97 03/06/18 09:00 82 149/98 03/06/18 08:59 98.0 F Intake and Output 03/06/18 03/07/18 03/07/18 22:59 06:59 14:59 Intake Total 600 480 Output Total 1800 Balance -1200 480 Intake: Oral 600 480 Output: Urine 1800 Void 1800 Other: Total, Intake Amount 240 240 Total, Output Amount 500 # Voids Void 1 - Exam Breasts: Present: deferred Abdomen: Present: normal appearance, soft. Absent: distention, tenderness Uterus: Present: normal, firm, fundal height below umbilicus. Absent: bogginess , tenderness Extremities: Present: normal - Labs Labs: Abnormal lab results 03/06/18 Range/Units 23:34 Hct 29.2 L (30.3-42.9) %
--- NOTE | 2018-03-07 08:56 | Discharge Summary ---
Providers - Providers Date of Admission: 03/05/18 15:02 Date of discharge: 03/07/18 Attending physician: FARIHA OROPEZA MD Primary care physician: FARIHA OROPEZA MD Hospitalization Reason for admission: induction of labor, IUP at term Delivery: Episiotomy: none Laceration: none Other procedures: none complications: none Discharge diagnosis: IUP at term delivered baby: female Condition at discharge: Good Disposition: DC-01 TO HOME OR SELFCARE Plan - Discharge Medications Prescriptions: Ibuprofen [Motrin 600 MG tab] 600 mg PO Q6H PRN #30 tablet PRN Reason: pain - Provider Discharge Summary Activity: routine, no sex for 6 weeks, no heavy lifting 4 weeks, no strenuous exercise Diet: routine Instructions: routine Additional instructions: [] Smoking cessation referral if applicable(refer to patient education folder for contact #) [] Refer to [facility] Booklet Call your doctor immediately for: * Fever > 100.5 * Heavy vaginal bleeding ( >1 pad per hour) * Severe persistent headache * Shortness of breath * Reddened, hot, painful area to leg or breast * Drainage or odor from incision. * Keep incision clean and dry at all times and follow doctor's instructions regarding bathing/showering - Follow up plan Follow up: FARIHA OROPEZA MD [Primary Care Provider] - (RTO 4 weeks )
[2018-03-07] MEDS ORDERED: PRENATAL VITAMIN PO SCH (10:00)
[2018-03-07 12:03] VITALS: BP 114/66
== END 2018-03-07 15:20 | disposition home or self-care (01) | DRG 775 ==
LOC: LD 15:02 → OB 03-06 13:00
PROVIDERS: ADMIT Obstetrics & Gynecology; ATTEND Obstetrics & Gynecology
PROC: 10E0XZZ Delivery of Products of Conception, External Approach (ICD-10-PCS; principal; 2018-03-06)
PROC: 3E0R3BZ Introduction of Anesthetic Agent into Spinal Canal, Percutaneous Approach (ICD-10-PCS; 2018-03-06)
PROC: 00HU33Z Insertion of Infusion Device into Spinal Canal, Percutaneous Approach (ICD-10-PCS; 2018-03-06)
PROC: 3E033VJ Introduction of Other Hormone into Peripheral Vein, Percutaneous Approach (ICD-10-PCS; 2018-03-06)
DX: O99.334 Smoking (tobacco) complicating childbirth (principal); Z37.0 Single live birth; F17.200 Nicotine dependence, unspecified, uncomplicated; O99.214 Obesity complicating childbirth; E66.9 Obesity, unspecified; Z68.32 Body mass index [BMI] 32.0-32.9, adult; O99.52 Diseases of the respiratory system complicating childbirth; J45.909 Unspecified asthma, uncomplicated; O76 Abnormality in fetal heart rate and rhythm complicating labor and delivery; Z3A.40 40 weeks gestation of pregnancy; O69.1XX0 Labor and delivery complicated by cord around neck, with compression, not applicable or unspecified
CPT/HCPCS: 36415; 81001; 85014; 85018; 85025; 86592; 86850; 86900; 86901; 88307; J2590; J3010; J7120